=== PATIENT | female | born 1970 | race Caucasian/White ===

== ENCOUNTER 2018-07-23 10:46 | Emergency (ER) | payer SELFPAY ==
[~2018-07-23] VITALS: Ht 160 cm; Wt 67.0 kg
[2018-07-23] MEDS ORDERED: LIDOCAINE HCL/PF 1% 10 MG/ML 5ML VIAL IJ NR (11:45)
[2018-07-23] MEDS ORDERED: BACITRACIN ZINC OINT UDPKT TOP NR (11:45)
[2018-07-23] MEDS ORDERED: ACETAMINOPHEN 325MG TABLET PO NR (11:45)
[2018-07-23] MEDS ORDERED: TETANUS, DIPHTHERIA, PERTUSSIS VAC/PF 0.5ML (>7YR OLD) IM ONE (11:45)
[2018-07-23 15:35] VITALS: BP 129/67
== END 2018-07-23 15:37 | disposition home or self-care (01) ==
LOC: ER 10:46
DX: S01.21XA Laceration without foreign body of nose, initial encounter (principal); S00.83XA Contusion of other part of head, initial encounter; W20.8XXA Other cause of strike by thrown, projected or falling object, initial encounter; Y93.89 Activity, other specified; Y92.89 Other specified places as the place of occurrence of the external cause
CPT/HCPCS: 12011; 70450; 70486; 81025; 90471; 90715; 99284; J3490

== ENCOUNTER 2018-08-22 10:59 | Emergency (ER) | payer SELFPAY ==
[~2018-08-22] VITALS: Ht 162.6 cm; Wt 70.0 kg
[2018-08-22 11:04] VITALS: BP 122/70
== END 2018-08-22 13:04 | disposition home or self-care (01) ==
LOC: ER 10:59
DX: Z48.02 Encounter for removal of sutures (principal)
CPT/HCPCS: 99281